=== PATIENT | male | born 1935 | race Caucasian/White ===

== ENCOUNTER → 2021-04-05 | Outpatient (CLI) | payer MEDICARE, OTHER ==
[~2021-04-05] MED LIST: TORADOL 10 MG T10 MG PO; ZOFRAN ODT 4 MG4 MG SL
[2021-04-05 11:04] LABS: BUN/CREATININE RATIO 21 (0-10)
== END ==
LOC: OPSV 07:00
PROVIDERS: Internal Medicine
DX: N28.9 Disorder of kidney and ureter, unspecified (principal)
CPT/HCPCS: 36415; 80048; 96360; 96361; J7030

== ENCOUNTER → 2021-04-07 | Outpatient (CLI) | payer MEDICARE, OTHER | LOC: US 11:00 | DX: N28.9 Disorder of kidney and ureter, unspecified (principal); N20.0 Calculus of kidney ==

== ENCOUNTER 2021-10-07 13:35 | Emergency (ER) | payer MEDICARE, OTHER ==
[2021-10-07] MEDS ORDERED: CITRATE OF MAG296 ML PO (15:21)
[2021-10-07] MEDS ORDERED: PREPARATION H26 GM TP (15:21)
== END 2021-10-07 15:26 | disposition home or self-care (01) ==
LOC: ER1 13:35
DX: K64.9 Unspecified hemorrhoids (principal); K59.00 Constipation, unspecified; K62.89 Other specified diseases of anus and rectum; Z88.2 Allergy status to sulfonamides; Z87.891 Personal history of nicotine dependence
CPT/HCPCS: 99283

== ENCOUNTER 2022-02-12 12:47 | Emergency (ER) | payer MEDICARE, OTHER ==
[~2022-02-12 12:47] MED LIST changes: +CITRATE OF MAG296 ML PO; +PREPARATION H26 GM TP
[2022-02-12 14:33] LABS: BUN/CREATININE RATIO 15 (0-10)
[2022-02-12 16:08] LABS: HEMOGLOBIN 15.2 gm/dl (14.0-17.5); RED BLOOD COUNT 4.62 M/UL (4.20-5.50); WHITE BLOOD COUNT 4.3 K/UL (4.5-11.0)
[2022-02-12] MEDS ORDERED: OMNICEF 300 MG300 MG PO (16:53)
== END 2022-02-12 14:30 | disposition home or self-care (01) ==
LOC: ER1 12:47
PROVIDERS: Nurse Practitioner
DX: N39.0 Urinary tract infection, site not specified (principal); Z88.2 Allergy status to sulfonamides; Z20.822 Contact with and (suspected) exposure to COVID-19
CPT/HCPCS: 0240U; 71045; 80053; 81001; 82550; 82553; 83880; 84484; 85025; 87086; 93005; 99285

== ENCOUNTER → 2022-06-26 | Outpatient (CLI) | payer MEDICARE, OTHER ==
[~2022-06-26] VITALS: Ht 180.3 cm; Wt 73.5 kg
[~2022-06-26] MED LIST changes: +OMNICEF 300 MG300 MG PO
== END ==
LOC: EROP 12:27
DX: U07.1 COVID-19 (principal)
CPT/HCPCS: M0222; Q0222